=== PATIENT | male | born 2000 | race Caucasian/White ===

== ENCOUNTER 2020-08-08 16:28 | Emergency (ER) | payer OTHER ==
[2020-08-08 18:10] LABS: HEMOGLOBIN 17.8 gm/dl (14.0-17.5); RED BLOOD COUNT 5.69 M/UL (4.20-5.50); WHITE BLOOD COUNT 12.6 K/UL (4.5-11.0)
[2020-08-08 18:49] LABS: BUN/CREATININE RATIO 12 (0-10)
== END 2020-08-08 20:30 | disposition home or self-care (01) ==
LOC: ER1 16:28
PROVIDERS: Family Medicine
DX: R00.2 Palpitations (principal); R05 Cough; R07.9 Chest pain, unspecified; F17.210 Nicotine dependence, cigarettes, uncomplicated
CPT/HCPCS: 71045; 80053; 82550; 82553; 83874; 84439; 84443; 84484; 85025; 93005; 99284

== ENCOUNTER → 2020-10-24 | Outpatient (CLI) | payer OTHER | LOC: HEART 5 09-28 10:00 → ECHO 12:56 → HEART 5 11-03 10:00 | DX: R00.0 Tachycardia, unspecified (principal); I49.1 Atrial premature depolarization | CPT/HCPCS: ECHO; 93306 ==